=== PATIENT | male | born 1955 | race Two or more races ===

== ENCOUNTER 2021-12-31 10:19 | Emergency (ER) | payer OTHER ==
[~2021-12-31] VITALS: Ht 167.6 cm; Wt 87.1 kg
== END 2021-12-31 14:09 | disposition home or self-care (01) ==
LOC: ER 10:19
DX: S86.912A Strain of unspecified muscle(s) and tendon(s) at lower leg level, left leg, initial encounter (principal); X58.XXXA Exposure to other specified factors, initial encounter; Y93.9 Activity, unspecified; Y92.9 Unspecified place or not applicable; Y99.9 Unspecified external cause status